=== PATIENT | male | born 1960 | race Caucasian/White ===

== ENCOUNTER 2024-10-06 11:08 | Emergency (ER) | payer OTHER ==
[~2024-10-06] VITALS: Ht 182.9 cm; Wt 168.2 kg
--- NOTE | 2024-10-06 11:14 | ELECTROCARDIOGRAPH REPORT ---
[facility] Test Date: 2024-10-06 Test Time: 11:12:33 Pat Name: MINOO RIVERA Department: EMERGENCY ROOM Room: Gender: M Primary Health Care Nurse: NUBIA : 1960 Requested By: ARACELIS BAIRD Order Number: [id number] Reading MD: Dr. Mukund Waddell Measurements Intervals [place] Rate: 154 P: 0 SD: 0 QRS: 21 QRSD: 86 T: 28 QT: 302 QTc: 484 Interpretive Statements Atrial fibrillation with rapid V-rate Abnormal R-wave progression, early transition Electronically Signed On 10-06-2024 22:15:[address] Mukund Waddell Please click the below link to view image of tracing.
[2024-10-06 11:15] VITALS: TEMP 98.5
[2024-10-06] MEDS: magnesium sulf-water 2g/50mL 50 ML IV ONE (11:50)
[2024-10-06] MEDS: normal saline 1000ml 1,000 ML IV SCH (12:05)
[2024-10-06 12:11] LABS: BASOPHILS # (AUTO) 0.1 X10'3 (0-0.2); BASOPHILS % (AUTO) 0.6 % (0-1); EOSINOPHILS # (AUTO) 0.2 X10'3 (0-0.9); EOSINOPHILS % (AUTO) 1.5 % (0-6); HEMATOCRIT 42.8 % (42.0-52.0); LYMPHOCYTES # (AUTO) 1.6 X10'3 (1.1-4.8); LYMPHOCYTES % (AUTO) 14.4 % (21-51); MEAN CORPUSCULAR HEMOGLOBIN 27.1 PG (27.0-31.0); MEAN CORPUSCULAR HGB CONC 32.7 g/dL (33.0-36.5); MEAN CORPUSCULAR VOLUME 82.9 FL (78-98); MEAN PLATELET VOLUME 7.7 FL (7.4-10.4); MONOCYTES # (AUTO) 0.8 X10'3 (0-0.9); MONOCYTES % (AUTO) 6.9 % (2-12); NEUTROPHILS # (AUTO) 8.6 X10'3 (1.8-7.7); NEUTROPHILS % (AUTO) 76.6 % (42-75); PLATELET COUNT 281 X10'3 (140-440); RED BLOOD COUNT 5.17 X10'6 (4.70-6.10); RED CELL DISTRIBUTION WIDTH 15.4 % (11.5-14.5); WHITE BLOOD COUNT 11.3 X10'3 (4.5-11.0)
--- NOTE | 2024-10-06 12:25 | RADIOLOGY REPORT ---
EXAM: DI CHEST,SINGLE VIEW Indication: CP Technique: Single frontal view of the chest was obtained Comparison: None FINDINGS: Lines and Tubes: None Lungs: No focal consolidation. Pleura: No effusion. No pneumothorax. Cardiomediastinal contours: Unremarkable Bones: No acute osseous abnormality. IMPRESSION: No acute cardiopulmonary disease.
[2024-10-06] MEDS: normal saline 1000ml 1,000 ML IV ONE (12:49)
[2024-10-06 12:54] LABS: ALANINE AMINOTRANSFERASE 18 U/L (12-78); ALBUMIN 3.3 G/DL (3.4-5.0); ALBUMIN/GLOBULIN RATIO 0.9 (1.1-1.5); ALKALINE PHOSPHATASE 86 IU/L (46-116); ANION GAP 6 (8-16); ASPARTATE AMINO TRANSFERASE 10 U/L (10-37); BILIRUBIN,TOTAL 0.8 MG/DL (0.1-1.0); BLOOD UREA NITROGEN 12 MG/DL (7-18); CALCIUM 8.9 MG/DL (8.5-10.1); CHLORIDE 105 MMOL/L (99-107); GLUCOSE 106 MG/DL (70-104); POTASSIUM 4.2 MMOL/L (3.5-5.1); SODIUM 138 MMOL/L (135-145); TOTAL CARBON DIOXIDE 27.2 MMOL/L (24-32); eCRCL 104 ML/MIN; eGFR > 90 ML/MIN
[2024-10-06 13:02] LABS: MAGNESIUM 2.6 MG/DL (1.5-2.4); PRO BRAIN NATRIURETIC PEPTIDE 2461 PG/ML (0-125)
[2024-10-06] MEDS: etomidate 2mg/ml inj. IV ONE (13:16)
--- NOTE | 2024-10-06 13:28 | Physician Documentation ---
History of Present Illness ~ Chief Complaint: Irregular Heartbeat Stated Complaint: AFIB Time Seen by MD: 11:18 OK to notify your PCP?: Yes Primary Medical Doctor: [facility] Mode of Arrival: POV, Dropped Off HPI 64-year-old male patient came to the ER because of rapid heartbeat since Wednesday afternoon. Patient has history of atrial fibrillation and the patient is currently taking sotalol with Eliquis since 2017. He does not fail his Eliquis dose except this morning. Denies chest pain. Denies shortness a breath. Medication Reconciliation Allergies: Coded Allergies: No Known Allergies (Unverified , 10/06/24) Scheduled Magnesium Chloride (Slow-Mag), 1 TAB PO Q12H Sotalol HCl (Sotalol AF), 1 TAB PO Q12H Review of Systems ROS As stated above in the HPI, otherwise all systems are reviewed and negative. Physical Exam Vital Signs: Temperature: 98.5, Source: Temporal, Heart Rate: 77, Respiratory Rate: 22, BP: 135/73, Pulse Oximetry: 97, Weight: 168.200 Oxygen Flow Rate: 2.0 Physical Exam Reviewed vital signs and patient has discrepancy between the EKG and pulse ox heart rate. vehicle monitor technician showed atrial fibrillation with rapid ventricular response the high- risk is going to 154-160. Const: Not in pain. Head: Atraumatic Eyes: Normal Conjunctiva ENT: Normal External Ears, Nose and Mouth. Moist mucous membranes Neck: Full range of motion. No meningismus Resp: Clear to auscultation bilaterally. Normal work of breathing Cardio: Irregularly irregular heart rate varying but above 120. Abd: Soft, non-tender, non-distended. Normal bowel sounds. No rebound or guarding Skin: No petechiae or rashes. Warm and dry Back: No midline or flank tenderness Ext: No cyanosis, or edema Neuro: Awake and alert Psych: Normal Mood and Affect Progress Results/Orders Results/Orders Orders - ARACELIS BAIRD MD Chest,Single View (10/06/24 12:00) Monitor (10/06/24 11:13) Saline Lock (10/06/24 11:13) Oxygen (10/06/24 11:13) Electrocardiogram (10/06/24 11:13) Stat Ekg (10/06/24 13:12) Completed Orders - ARACELIS BAIRD MD Chest,Single View (10/06/24 12:00) Cbc/Diff (10/06/24 11:13) PBNP (10/06/24 11:13) Electrocardiogram (10/06/24 11:13) CMP (10/06/24 11:13) Hs Troponin I W Calculations (10/06/24 11:13) Hs Troponin I W Calculations (10/06/24 13:13) Hs Troponin I W Calculations (10/06/24 14:13) MG (10/06/24 11:21) Magnesium Sulf-Water 2g/50ml (Magnesium (10/06/24 11:45) Normal Saline 1000ml (Sodium Chloride 10 (10/06/24 12:05) Etomidate Inj (Amidate Inj) (10/06/24 12:05) Normal Saline 1000ml (Sodium Chloride 10 (10/06/24 12:05) Stat Ekg (10/06/24 13:12) Vital Signs 10/06/24 10/06/24 10/06/24 10/06/24 11:15 11:57 12:49 12:50 Temp 98.5 Pulse 155 131 139 Resp 16 18 18 B/P (MAP) 142/84 136/75 (95) 104/55 (71) Pulse Ox 99 99 95 O2 Flow Rate 0 0 10/06/24 10/06/24 10/06/24 10/06/24 13:00 13:04 13:09 13:21 Pulse 127 77 75 72 Resp 18 22 24 19 B/P (MAP) 97/55 (69) 135/73 135/67 (89) 127/58 (81) Pulse Ox 98 97 97 98 O2 Delivery Nasal Cannula Nasal Cannula Nasal Cannula O2 Flow Rate 0 2.0 2.0 2.0 10/06/24 10/06/24 13:40 16:23 Pulse 74 70 Resp 17 18 B/P (MAP) 104/53 (70) 97/76 Pulse Ox 96 99 O2 Delivery Room Air O2 Flow Rate 0 Laboratory Tests Test 10/06/24 11:40 10/06/24 12:23 10/06/24 13:32 10/06/24 14:20 White Blood Count 11.3 H Red Blood Count 5.17 Hemoglobin 14.0 Hematocrit 42.8 Mean Corpuscular Volume 82.9 Mean Corpuscular Hemoglobin 27.1 Mean Corpuscular Hemoglobin Concent 32.7 L Red Cell Distribution Width 15.4 H Platelet Count 281 Mean Platelet Volume 7.7 Neutrophils (%) (Auto) 76.6 H Lymphocytes (%) (Auto) 14.4 L Monocytes (%) (Auto) 6.9 Eosinophils (%) (Auto) 1.5 Basophils (%) (Auto) 0.6 Neutrophils # (Auto) 8.6 H Lymphocytes # (Auto) 1.6 Monocytes # (Auto) 0.8 Eosinophils # (Auto) 0.2 Basophils # (Auto) 0.1 CBC Comment Troponin I High Sensitivity 5 5 6 Sodium Level 138 Potassium Level 4.2 Chloride Level 105 Carbon Dioxide Level 27.2 Anion Gap 6 L Blood Urea Nitrogen 12 Creatinine 0.80 Estimated GFR/1.73 m2 > 90 BUN/Creatinine Ratio 15.0 Glucose Level 106 H Calcium Level 8.9 Magnesium Level 2.6 H Total Bilirubin 0.8 Aspartate Amino Transf (AST/SGOT) 10 Alanine Aminotransferase (ALT/SGPT) 18 Alkaline Phosphatase 86 Pro-B-Type Natriuretic Peptide 2461 H Total Protein 7.0 Albumin 3.3 L Globulin 3.7 Albumin/Globulin Ratio 0.9 L Chemistry Comments Troponin I High Sens Percent Delta 0 20 Troponin I Hi Sens Absolute Change 0 1 Medical Decision Making Findings Patient does have atrial fibrillation with rapid ventricular response and the 1st EKG done at 1112 hours showed AFib with RVR at a rate of 154. No ischemic changes. The patient is hemodynamically somewhat compromised with a soft blood pressure. I reviewed his medication and he is already anticoagulated more than three weeks. He is already on sotalol. I explained to him that we could try electrical cardioversion to get back to use medication trying to convert which is longer route. Patient is agreeable for electrical cardioversion and the consent signed. I used etomidate 30 mg for procedure sedation and 150 joules with synchronized cardioversion and is converted back to sinus rhythm. Patient is given magnesium sulfate 2 g intravenously. He is monitor for 2 hours after the cardioversion. As he is back to sinus rhythm and he is already on sotalol I think he can go home with magnesium supplementation to maintain in the sinus rhythm. I will increase the sotalol to 120 mg twice a day instead of 80 mg twice a day. CRITICAL CARE TIME: [35 ] minutes Treatments/Evaluations: Close monitoring and treatment of unstable vital signs, cardiorespiratory, and neurologic status, while maintaining tight balance of fluid, respiratory, and cardiac interventions. This time includes discussing the case with the patient and the patients family. This time does not include all procedures stated elsewhere in this record. This time also includes reviewing old records, labs and radiological studies. This time includes examining and re- examining the patient. Additionally, this time also includes arranging care with admitting and consulting physicians. DISCLAIMER Inadvertent spelling and grammatical errors,inadvertent exceptional student education teacher errors,syntax errors, grammatical errors, and spelling errors are likely due to EMR/dictation software use and do not reflect on the overall quality of patient care. Note that the electronic time recorded on this note does not necessarily reflect the actual time of the patient encounter. Departure Disposition: HOME / SELF CARE / HOMELESS Impression: Primary Impression: Atrial fibrillation with RVR Condition: Stable Referrals: NO PRIMARY CARE PROVIDER (PCP) Prescriptions Magnesium Chloride (Slow-Mag) 71.5 Mg Tablet.dr 1 TAB PO Q12H for 30 Days, #60 TAB 0 Refills Prov: ARACELIS BAIRD MD 10/06/24 Sotalol HCl (Sotalol AF) 120 Mg Tablet 1 TAB PO Q12H for 30 Days, #60 TAB 0 Refills Prov: ARACELIS BAIRD MD 10/06/24 Signature Scribe Signature: x Attestation: ARACELIS Cadet MD October 06, 2024 13:28
--- NOTE | 2024-10-06 13:35 | ELECTROCARDIOGRAPH REPORT ---
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 Mukund Waddell Measurements Intervals [place] Rate: 75 P: 55 [place]: 185 QRS: 36 QRSD: 95 T: 40 QT: 422 QTc: 472 Interpretive Statements Sinus rhythm Abnormal R-wave progression, early transition Electronically Signed On 10-06-2024 18:40:[address] Mukund Waddell Please click the below link to view image of tracing.
[2024-10-06] MEDS ORDERED: MAGN64TA8 PO (14:09)
[2024-10-06] MEDS ORDERED: SOTA120T9 PO (14:09)
[2024-10-06 16:23] VITALS: BP 97/76; PULSE 70; RESP 18; O2SAT 99
== END 2024-10-06 16:24 | disposition home or self-care (01) ==
LOC: ER 11:09
DX: I48.20 Chronic atrial fibrillation, unspecified (principal); Z79.01 Long term (current) use of anticoagulants; Z79.899 Other long term (current) drug therapy
CPT/HCPCS: 36415; 71045; 80053; 83735; 83880; 84484; 85025; 92960; 93005; 96365; 99291; J3490; J7030; A4620